=== PATIENT | male | born 1985 | race Caucasian/White ===

== ENCOUNTER 2024-05-18 00:30 | Emergency (ER) | payer SELFPAY ==
[2024-05-18] MEDS ORDERED: KETOROLAC 30 MG/ML INJ ONE (01:35)
[2024-05-18] MEDS ORDERED: ONDANSETRON 4 MG/2 ML VIAL ONE (01:35)
[2024-05-18] MEDS ORDERED: NA CHLORIDE 0.9% 1,000 ML ONE (01:35)
[2024-05-18] MEDS ORDERED: HYDROMORPHONE HCL 0.5 MG/0.5 ML INJ ONE ×3 (01:35→04:10)
[2024-05-18 02:39] LABS: Absolute Eosinophils 0.1 K/uL (0-0.5); Absolute Lymphocytes (CBC) 2.9 K/uL (0.7-4.9); Absolute Neutrophil 10.2 K/uL (1.8-8.0); Basophils % 0.3 % (0-1.3); Eosinophils % 0.8 % (0-4.4); Hematocrit 45.4 % (39.6-49.0); Hemoglobin 15.3 g/dL (13.6-17.9); MCH 30.2 pg (27.0-35.0); MCHC 33.8 g/dL (32.0-36.0); MCV 89.3 fL (80-100); MPV 10.2 fL (7.6-11.3); Monocytes % 7.3 % (3.3-12.3); Neutrophils % 71.6 % (41.7-73.7); Nucleated Red Blood Cells % 0.1 % (0-0); Platelets 251 thou/uL (152-406); RBC Red Blood Cell Count 5.08 M/uL (4.33-5.43); Red Cell Distribution Width 14.2 % (12.1-15.2)
[2024-05-18 02:49] LABS: Albumin 3.9 g/dL (3.4-5.0); Albumin/Globulin Ratio 1.1 (1.1-1.8); Anion Gap 7.9 mEq/L (5.0-15.0); Bilirubin Total 0.5 mg/dL (0.2-1.0); Globulin 3.5 g/dL (2.3-3.5); Potassium 3.9 mEq/L (3.5-5.1); Protein, Total 7.4 g/dL (6.4-8.2)
--- NOTE | 2024-05-18 04:02 | RAD REPORT ---
EXAM DESCRIPTION: CTAbdomen Pelvis Wo Contrast - 05/18/2024 1:57 am CLINICAL HISTORY: FLANK PAIN COMPARISON: No comparisons TECHNIQUE: CT of the abdomen and pelvis was performed. All CT scans are performed using dose optimization technique as appropriate and may include automated exposure control or mA/KV adjustment according to patient size. FINDINGS: Lower chest: No acute abnormality. Liver: No acute abnormality or suspicious lesions. Biliary: No biliary ductal dilatation. Cholecystectomy. Stomach: No significant focal abnormality. Duodenum: No significant focal abnormality. Pancreas: No significant abnormality. Spleen: No significant abnormality. Adrenal: No suspicious lesions. Kidney/ureter: Mild left-sided hydronephrosis secondary to a 2 mm stone in the left distal ureter. Pu nctate 1-2 mm stone in the interpolar aspect of the left kidney. Retroperitoneum: No retroperitoneal adenopathy. Vascular: No aneurysm. Bowel: No significant focal abnormality. Peritoneum: No ascites or free air. Bladder: Grossly unremarkable. Reproductive: No adnexal masses. Bones: No acute fracture. Grade 1 anterolisthesis of L5 on S1 with bilateral pars defects. Other: n/a IMPRESSION: Mild left-sided hydroureteronephrosis secondary to a 2 mm stone in the left distal urete r.
[2024-05-18 04:19] LABS: Specific Gravity > 1.030 (1.005-1.030); Sqamous Epithelial None Seen /HPF (None Seen); Urine Bacteria <20 /HPF (<20); Urine Bilirubin NEGATIVE (Negative); Urine Blood 3+ (OVER) (Negative); Urine Clarity Extremely Turbid (Clear); Urine Color Yellow (Yellow); Urine Culture Reflex Order NOT NEEDED; Urine Glucose NEGATIVE (Negative); Urine Ketones 1+ (Negative); Urine Microscopic Reflex YN ORDER UMIC; Urine Mucus 4+ /HPF (None Seen); Urine Nitrite NEGATIVE (Negative); Urine Protein 1+ (Negative); Urine RBC >50 /HPF (None Seen); Urine Urobilinogen 1+ (Normal); Urine WBC <5 /HPF (<5)
--- NOTE | 2024-05-18 04:24 | EDPHYS ---
Physician Documentation [facility] Name: Sunny Izaguirre Age: 38 yrs Sex: Male : 1985 Arrival Date: 05/18/2024 Time: 00:30 Bed 18 Private MD: ED Physician Valerio Degroot HPI: 05/18 01:39 This 38 yrs old Male presents to ER via Ambulatory with complaints of Possible Kidney sp3 Stone. 01:39 38-year-old male with history of kidney stones with the last one being approximately 2 sp3 years ago now presents with left-sided flank pain that started proxy 1 hour prior to arrival. Patient states he feels like standard kidney stone and describes the pain is writhing in nature and him not being able to sit still. He denies any gross visualized hematuria, dysuria, urinary frequency, right-sided flank pain, intra-abdominal pain, vomiting, diarrhea but does endorse nausea. Remainder of ROS negative.. Historical: - Allergies: 01:22 No Known Allergies; cp4 - Immunization history:: Adult Immunizations up to date. - Infectious Disease History:: Denies. - Social history:: Smoking status: Patient denies any tobacco usage or history of. ROS: 01:40 Constitutional: Negative for fever, chills, and weight loss, Eyes: Negative for injury, sp3 pain, redness, and discharge, ENT: Negative for injury, pain, and discharge, Neck: Negative for injury, pain, and swelling, Cardiovascular: Negative for chest pain, palpitations, and edema, Respiratory: Negative for shortness of breath, cough, wheezing, and pleuritic chest pain, MS/Extremity: Negative for injury and deformity, Skin: Negative for injury, rash, and discoloration, Neuro: Negative for headache, weakness, numbness, tingling, and seizure, Psych: Negative for depression, anxiety, suicide ideation, homicidal ideation, and hallucinations, Allergy/Immunology: Negative for hives, rash, and allergies, Endocrine: Negative for neck swelling, polydipsia, polyuria, polyphagia, and marked weight changes, 01:40 All other systems are negative, Exam: 01:41 Constitutional: This is a well developed, well nourished patient who is awake, alert, sp3 and in no acute distress. Head/Face: Normocephalic, atraumatic. Eyes: Pupils equal round and reactive to light, extra-ocular motions intact. Lids and lashes normal. Conjunctiva and sclera are non-icteric and not injected. Cornea within normal limits. Periorbital areas with no swelling, redness, or edema. ENT: Nares patent. No nasal discharge, no septal abnormalities noted. External auditory canals are clear. Oropharynx with no redness, swelling, or masses, exudates, or evidence of obstruction, uvula midline. Mucous membranes moist. Neck: Trachea midline, no thyromegaly or masses palpated, and no cervical lymphadenopathy. Supple, full range of motion without nuchal rigidity, or vertebral point tenderness. No Meningismus. Chest/axilla: Normal chest wall appearance and motion. Nontender with no deformity. No lesions are appreciated. Cardiovascular: Regular rate and rhythm with a normal S1 and S2. No gallops, murmurs, or rubs. Normal PMI, no JVD. No pulse deficits. Respiratory: Lungs have equal breath sounds bilaterally, clear to auscultation and percussion. No rales, rhonchi or wheezes noted. No increased work of breathing, no retractions or nasal flaring. Skin: Warm, dry with normal turgor. Normal color with no rashes, no lesions, and no evidence of cellulitis. MS/ Extremity: Pulses equal, no cyanosis. Neurovascular intact. Full, normal range of motion. Neuro: Awake and alert, GCS 15, oriented to person, place, time, and situation. Cranial nerves II-XII grossly intact. Motor strength 5/5 in all extremities. Sensory grossly intact. Cerebellar exam normal. Normal gait. Psych: Awake, alert, with orientation to person, place and time. Behavior, mood, and affect are within normal limits. 01:41 Abdomen/GI: Left-sided flank pain and CVA tenderness radiating around to the left inguinal area., Vital Signs: 01:19 BP 119 / 83; Pulse 79; Resp 18; Temp 98.1; Pulse Ox 100% ; Weight 131.54 kg; Height 6 cp4 ft. 2 in. ; Pain 10/10; 04:07 BP 126 / 87; Pulse 88; Resp 16; Pulse Ox 99% on R/A; Pain 8/10; hb 01:19 Body Mass Index 37.23 (131.54 kg, 187.96 cm) cp4 01:19 Pain Scale: Adult cp4 04:07 Pain Scale: Adult hb MDM: 01:23 Patient medically screened. sp3 01:42 Data reviewed: vital signs, nurses notes, lab test result(s), radiologic studies. ED sp3 course: 38-year-old male with left-sided flank pain. Differential diagnosis includes ureterolithiasis/kidney stone spectrum, UTI/pyelonephritis spectrum, other intra-abdominal pathology, or abdominal cramping. I am not highly suspicious for vascular pathology, sepsis, shock or any other critical process at this time. Will obtain CT scan of the abdomen pelvis noncontrast, laboratory values, UA and administer Dilaudid IV, Zofran IV and ketorolac IV for symptomatic control along with some IV fluids. Disposition pending workup and patient course depending on the size of the stone and her final diagnosis/pathology.. 03:32 ED course: Imaging not crossing over due to internal disaster. My read on CT sp3 demonstrates 3 mm or less kidney stone in the ureter at the left UVJ with mild hydronephrosis. Patient's symptoms are much improved. We will safely discharge him home on Flomax and diclofenac with follow-up to urology.. 04:22 ED course: UA demonstrates red cells only without signs of infection. CT read by sp3 radiology matches my read above. We will safely discharge patient home on tramadol and Flomax and diclofenac. Follow-up with urology.. 05/18 01:24 Order name: CBC with Diff; Complete Time: 02:59 sp3 05/18 01:24 Order name: CMP; Complete Time: 02:59 sp3 05/18 01:24 Order name: Lipase; Complete Time: 02:59 sp3 05/18 01:24 Order name: Urinalysis w/ reflexes; Complete Time: 04:21 sp3 05/18 01:24 Order name: CT Abd/Pelvis - Without Contrast; Complete Time: 04:10 sp3 05/18 01:24 Order name: IV Saline Lock; Complete Time: 01:48 sp3 05/18 01:24 Order name: Labs collected and sent; Complete Time: 01:48 sp3 Administered Medications: 01:40 Drug: Ondansetron IVP 4 mg IVP once; over 2 minutes Route: IVP; Site: right antecubital;cp4 02:29 Follow up: Response: No adverse reaction cp4 01:40 Drug: HYDROmorphone IVP 1 mg IVP once Route: IVP; Site: right antecubital; cp4 01:41 Drug: NS 0.9% IV 1000 ml IV at 1 bolus Per protocol; 1000 mL bolus Route: IV; Rate: 1 cp4 bolus; Site: right antecubital; 01:41 Drug: TORadol - Ketorolac IVP 15 mg IVP once Route: IVP; Site: right antecubital; cp4 02:29 Follow up: Response: No adverse reaction; Pain is decreased cp4 01:48 Drug: HYDROmorphone IVP 1 mg IVP once Route: IVP; Site: right antecubital; cp4 02:28 Follow up: Response: No adverse reaction; Pain is decreased cp4 04:15 Drug: HYDROmorphone IVP 1 mg IVP once Route: IVP; Site: right antecubital; hb 04:36 Follow up: Response: No adverse reaction hb Disposition Summary: 05/18/24 04:23 Discharge Ordered Notes: Location: Home(05/18/24 04:23) sp3 Condition: Stable(05/18/24 04:23) sp3 Diagnosis - Ureterolithiasis, kidney stone, flank pain left side sp3 Followup: sp3 - With: Kwame Melton MD - When: Upon discharge from the Emergency Department - Reason: Further diagnostic work-up, Recheck today's complaints Discharge Instructions: - Discharge Summary Sheet sp3 - Kidney Stones sp3 Forms: - Medication Reconciliation Form sp3 - Antibiotic Education sp3 - Prescription Opioid Use sp3 - Patient Portal Instructions sp3 - Leadership Thank You Letter sp3 Prescriptions: - Flomax 0.4 mg Oral capsule - take 1 capsule ORAL route every 24 hours; 5 capsule; Refills: 0, Product sp3 Selection Permitted - Diclofenac Sodium 75 mg Oral Tablet Sustained Release - take 1 tablet ORAL route 2 times per day; 30 tablet; Refills: 0, Product sp3 Selection Permitted - Tramadol 50 mg Oral Tablet - take 1 tablet ORAL route every 8 hours as needed; 12 tablet; Refills: 0, sp3 Product Selection Permitted Signatures: Dispatcher [employer] Carmelina Hearn RN RN Valerio Lauren MD MD sp3 Debbie Canas cp4 Corrections: (The following items were deleted from the chart) 01:24 01:24 CBC+H.LAB.BRZ ordered. EDMS EDMS 01:24 01:24 COMPREHENSIVE METABOLIC PANEL+C.LAB.BRZ ordered. EDMS EDMS 01:24 01:24 LIPASE+C.LAB.BRZ ordered. EDMS EDMS 01:24 01:24 Urinalysis+U.LAB.BRZ ordered. EDMS EDMS 01:24 01:24 Abdomen Pelvis Wo Con+CT.RAD.BRZ ordered. EDMS EDMS 01:43 01:42 ED course: 38-year-old male with left-sided flank pain. Differential diagnosis sp3 includes ureterolithiasis/kidney stone spectrum, UTI/pyelonephritis spectrum, other intra-abdominal pathology, or abdominal cramping. I am not highly suspicious for vascular pathology, sepsis, shock or any other critical process at this time.. sp3 03:34 03:34 Home sp3 sp3 03:34 03:34 Stable sp3 sp3 03:34 03:34 Ureteral kidney stone, renal colic sp3 sp3
--- NOTE | 2024-05-18 04:24 | ER ---
Nurse's Notes [facility] Name: Sunny Izaguirre Age: 38 yrs Sex: Male : 1985 Arrival Date: 05/18/2024 Time: 00:30 Bed 18 Private MD: Diagnosis: Ureterolithiasis, kidney stone, flank pain left side Presentation: 05/18 01:19 Chief complaint: Patient states: possible kidney stone. Report lower left sided cp4 abdominal/flank pain that radiates to the groin. Coronavirus screen: Client denies travel out of the [place] in the last 14 days. At this time, the client does not indicate any symptoms associated with coronavirus-19. Ebola Screen: Patient negative for fever greater than or equal to 101.5 degrees Fahrenheit, and additional compatible Ebola Virus Disease symptoms Patient denies exposure to infectious person. Patient denies travel to an Ebola-affected area in the 21 days before illness onset. No symptoms or risks identified at this time. Initial Sepsis Screen: Does the patient meet any 2 criteria? No. Patient's initial sepsis screen is negative. Does the patient have a suspected source of infection? No. Patient's initial sepsis screen is negative. 01:19 Method Of Arrival: Ambulatory cp4 01:19 Risk Assessment: Do you want to hurt yourself or someone else? Patient reports no cp4 desire to harm self or others. 01:19 Acuity: MALI 3 cp4 01:19 Onset of symptoms was May 17, 2024. cp4 Triage Assessment: 01:22 General: Appears distressed, Behavior is agitated, anxious. Pain: Complains of pain in cp4 left lower quadrant. GI: Abdomen is round non-distended, Bowel sounds present X 4 quads. Reports nausea, vomiting. Historical: - Allergies: 01:22 No Known Allergies; cp4 - Immunization history:: Adult Immunizations up to date. - Infectious Disease History:: Denies. - Social history:: Smoking status: Patient denies any tobacco usage or history of. Screenin:24 [facility] ED Fall Risk Assessment (Adult) History of falling in the last 3 months, cp4 including since admission No falls in past 3 months (0 pts) Confusion or Disorientation No (0 pts) Intoxicated or Sedated No (0 pts) Impaired Gait No (0 pts) Mobility Assist Device Used No (0 pt) Altered Elimination No (0 pt) Score/Fall Risk Level 0 - 2 = Low Risk Oriented to surroundings, Maintained a safe environment, Assessed \T\ reinforced patient's understanding of fall precautions, Hourly rounding (assess needs \T\ fall precautionary measures) done. Abuse screen: Denies threats or abuse. Nutritional screening: No deficits noted. Tuberculosis screening: No symptoms or risk factors identified. Assessment: 01:24 Reassessment: No changes from previously documented assessment. cp4 04:15 Reassessment: Pt c/o pain 8/10. Dr. Degroot notified, medicated as ordered. hb 04:40 General: Pt discharged to lobby to wait for transportation, verbalized understanding of hb no driving due to narcotic administration during this visit.. Vital Signs: 01:19 BP 119 / 83; Pulse 79; Resp 18; Temp 98.1; Pulse Ox 100% ; Weight 131.54 kg; Height 6 cp4 ft. 2 in. ; Pain 10/10; 04:07 BP 126 / 87; Pulse 88; Resp 16; Pulse Ox 99% on R/A; Pain 8/10; hb 01:19 Body Mass Index 37.23 (131.54 kg, 187.96 cm) cp4 01:19 Pain Scale: Adult cp4 04:07 Pain Scale: Adult hb ED Course: 00:32 Patient arrived in ED. rg4 01:08 Valerio Degroot MD is Attending Physician. sp3 01:14 Debbie Canas is Primary Nurse. cp4 01:21 Triage completed. cp4 01:22 Arm band placed on right wrist. Patient placed in waiting room. cp4 01:24 Bed in low position. Call light in reach. Side rails up X2. cp4 01:24 No provider procedures requiring assistance completed. cp4 01:48 Inserted saline lock: 20 gauge in right antecubital area, using aseptic technique. cp4 Blood collected. 01:59 CT Abd/Pelvis - Without Contrast In Process Unspecified. EDMS 04:22 Kwame Melton MD is Referral Physician. sp3 04:36 Provided Education on: medications, follow up. hb 04:36 IV discontinued, intact, bleeding controlled, No redness/swelling at site. Pressure hb dressing applied. Administered Medications: 01:40 Drug: Ondansetron IVP 4 mg IVP once; over 2 minutes Route: IVP; Site: right antecubital;cp4 02:29 Follow up: Response: No adverse reaction cp4 01:40 Drug: HYDROmorphone IVP 1 mg IVP once Route: IVP; Site: right antecubital; cp4 01:41 Drug: NS 0.9% IV 1000 ml IV at 1 bolus Per protocol; 1000 mL bolus Route: IV; Rate: 1 cp4 bolus; Site: right antecubital; 01:41 Drug: TORadol - Ketorolac IVP 15 mg IVP once Route: IVP; Site: right antecubital; cp4 02:29 Follow up: Response: No adverse reaction; Pain is decreased cp4 01:48 Drug: HYDROmorphone IVP 1 mg IVP once Route: IVP; Site: right antecubital; cp4 02:28 Follow up: Response: No adverse reaction; Pain is decreased cp4 04:15 Drug: HYDROmorphone IVP 1 mg IVP once Route: IVP; Site: right antecubital; hb 04:36 Follow up: Response: No adverse reaction hb Medication: 01:24 VIS not applicable for this client. cp4 Outcome: 03:34 Discharge ordered by . sp3 04:23 Discharge ordered by . sp3 04:36 Discharged to to [facility] hb 04:36 Condition: stable 04:36 Discharge instructions given to patient, Instructed on discharge instructions, follow up and referral plans. medication usage, no driving Demonstrated understanding of instructions, follow-up care, medications, Prescriptions given X 3, 04:41 Patient left the ED. hb Signatures: Dispatcher [employer] EDCarmelina Morrell, Liliana Nelson RN rg4 Valerio Degroot MD MD sp3 Debbie Canas cp4
[2024-05-18 06:18] VITALS: BP 126/87; TEMP 98.1; O2SAT 99
== END 2024-05-18 04:41 | disposition home or self-care (01) ==
LOC: ER 00:30
DX: N20.2 Calculus of kidney with calculus of ureter (principal); Z87.442 Personal history of urinary calculi
CPT/HCPCS: 36415; 74176; 80053; 81001; 83690; 85025; 96374; 96375; 99284; J1170; J2405; J7030